=== PATIENT | female | born 1980 ===

== ENCOUNTER 2017-08-12 19:17 | Inpatient (IN) | payer OTHER ==
[~2017-08-12] VITALS: Ht 157.5 cm; Wt 62.6 kg
[2017-08-13] MEDS ORDERED: MULTI VITAMIN1 EACH PO (09:49)
== END 2017-08-17 16:57 | disposition home or self-care (01) | DRG 742 ==
LOC: O/R 08-16 05:38 → SURH 08-16 05:38
PROVIDERS: Obstetrics & Gynecology; Plastic Surgery
PROC: 0UT70ZZ Resection of Bilateral Fallopian Tubes, Open Approach (ICD-10-PCS; principal; 2017-08-16 07:00)
PROC: 0J080ZZ Alteration of Abdomen Subcutaneous Tissue and Fascia, Open Approach (ICD-10-PCS; 2017-08-16 07:00)
PROC: 0HBV0ZZ Excision of Bilateral Breast, Open Approach (ICD-10-PCS; 2017-08-16 07:00)
DX: Z30.2 Encounter for sterilization (principal); K65.4 Sclerosing mesenteritis; Z64.1 Problems related to multiparity; N62 Hypertrophy of breast; N65.1 Disproportion of reconstructed breast